=== PATIENT | female | born 1935 | race Caucasian/White ===

== ENCOUNTER → 2018-06-08 | Outpatient (CLI) | payer MEDICARE ==
[~2018-06-08] MED LIST: IPRATROPIU0.2 MG/1 M IH; KLOR-CON 1010 MEQ PO; PANTOPRAZOLE SO40 MG PO; TRIAMTERENE-HC1 EAC1 PO; VITAMIN D1000 UNI1 PO
--- NOTE | 2018-06-08 12:00 | Diagnostic Imaging Report ---
MRI BRAIN WO HISTORY: Syncope, basilar artery aneurysm COMPARISON: None. TECHNIQUE: Sagittal T2, axial T2, axial T1, axial T2/FLAIR, axial gradient echo (or susceptibility weighted), coronal T2/FLAIR, and axial diffusion weighted MR images of the brain were obtained without contrast. DISCUSSION: Scalp/bone marrow: Unremarkable. Brain sulci: Mildly prominent. Ventricles: Compensatory dilatation. Small cavum septum pellucidum and cavum vergae are present. Extra-axial spaces: No masses or fluid collections. Parenchyma: Scattered T2/FLAIR hyperintense foci throughout the supratentorial white matter, humphrey, and bilateral peridentate cerebellum are likely chronic microvascular ischemic changes. 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 Mild symmetric magnetic susceptibility in the globi pallidi may be due to age-related mineralization. Otherwise, no mass or acute vascular insults. Vessels: Major flow voids are grossly unremarkable. Sellar/Suprasellar region: No abnormalities. Craniocervical junction: There are mild to moderate degenerative changes in the upper cervical spine Incidental findings: Both ocular lenses are thinned. IMPRESSION: 1. No acute intracranial abnormalities. 2. Moderate supratentorial and infratentorial chronic microvascular ischemic change. Mild generalized cerebral volume loss. 3. 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 Signed by: Dr. Christopher Yan M.D. on 06/08/2018 11:56 AM
--- NOTE | 2018-06-08 13:06 | Diagnostic Imaging Report ---
MRA HEAD WO, MRA NECK WO HISTORY: Basilar artery aneurysm COMPARISON: Concurrent MRI of the brain TECHNIQUE: Axial 2D cervical, and axial 3D intracranial [id number] MRA images were obtained without contrast. Maximum intensity projection images were created. If present, any cervical carotid stenosis will be measured as a percentage relative to the kiana artery distal to the stenosis. Motion and noise artifacts obscure some details. FINDINGS: CERVICAL MRA: Right Carotid: No gross flow abnormalities. Left Carotid: No flow abnormalities. Right vertebral artery: No gross flow abnormalities. Left vertebral artery: No gross flow abnormalities. INTRACRANIAL MRA: Carotid arteries: No flow abnormalities in the intracranial internal carotid arteries. Normal A1 and M1 segments. Vertebrobasilar Circulation: Right vertebral artery: No flow abnormalities. Left vertebral artery: No flow abnormalities. 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 No other flow abnormalities. Posterior cerebral arteries: No flow abnormalities. Normal Variants: ACom: Patent. PComs: Patent on the right. Not visualized on the left. Vertebral arteries: Left dominant. IMPRESSION: 1. 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 2. No other intracranial or cervical MRA abnormalities. Signed by: Dr. Christopher Yan M.D. on 06/08/2018 1:03 PM
--- NOTE | 2018-06-08 13:06 | Diagnostic Imaging Report ---
MRA HEAD WO, MRA NECK WO HISTORY: Basilar artery aneurysm COMPARISON: Concurrent MRI of the brain TECHNIQUE: Axial 2D cervical, and axial 3D intracranial [id number] MRA images were obtained without contrast. Maximum intensity projection images were created. If present, any cervical carotid stenosis will be measured as a percentage relative to the tetlin artery distal to the stenosis. Motion and noise artifacts obscure some details. FINDINGS: CERVICAL MRA: Right Carotid: No gross flow abnormalities. Left Carotid: No flow abnormalities. Right vertebral artery: No gross flow abnormalities. Left vertebral artery: No gross flow abnormalities. INTRACRANIAL MRA: Carotid arteries: No flow abnormalities in the intracranial internal carotid arteries. Normal A1 and M1 segments. Vertebrobasilar Circulation: Right vertebral artery: No flow abnormalities. Left vertebral artery: No flow abnormalities. 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 No other flow abnormalities. Posterior cerebral arteries: No flow abnormalities. Normal Variants: ACom: Patent. PComs: Patent on the right. Not visualized on the left. Vertebral arteries: Left dominant. IMPRESSION: 1. 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 2. No other intracranial or cervical MRA abnormalities. Signed by: Dr. Christopher Yan M.D. on 06/08/2018 1:03 PM
== END ==
LOC: MRI 08:11
PROVIDERS: ATTEND Psychiatry & Neurology Neurology
DX: I72.5 Aneurysm of other precerebral arteries (principal); Z86.79 Personal history of other diseases of the circulatory system
CPT/HCPCS: 70544; 70547; 70551

== ENCOUNTER → 2018-11-10 | Outpatient (CLI) | payer MEDICARE ==
--- NOTE | 2018-11-10 13:02 | Diagnostic Imaging Report ---
Exam: KUB - 1 view Clinical History: Renal calculus. Comparison: Report from CT abdomen/pelvis dated 12/31/2013, although the images are not available for review. Findings: Nonobstructive bowel gas pattern. Moderate amount of stool in the colon. Bowel gas obscures visualization of the kidneys. No evidence of calcification overlying the kidneys or expected course of the ureters. No acute osseous abnormality. Degenerative changes of visualized spine with dextroconvex curvature of the lumbar spine. Impression: Limited visualization of the kidneys secondary to overlying bowel gas. No radiographic evidence of urinary stone. Signed by: Dr. Wilber Michele MD on 11/10/2018 12:59 PM
== END ==
LOC: RAD 11:42
PROVIDERS: ATTEND Urology
DX: N20.0 Calculus of kidney (principal)
CPT/HCPCS: 74018

== ENCOUNTER → 2019-09-11 | Outpatient (CLI) | payer MEDICARE ==
--- NOTE | 2019-09-11 12:11 | Diagnostic Imaging Report ---
Abdomen, one view on 2 radiographs Clinical indications: Kidney calculus Comparison: 11/10/2018 Impression: 3 mm calcific density overlies the expected location of the upper pole of the left kidney. No right renal calculi are identified. The bowel gas pattern is nonobstructive. No acute osseous abnormalities. Signed by: Robbie Andres MD on 09/11/2019 12:08 PM
== END ==
LOC: RAD 11:34
PROVIDERS: ATTEND Urology
DX: N20.0 Calculus of kidney (principal)
CPT/HCPCS: 74018